=== PATIENT | female | born 1990 | race Caucasian/White ===

== ENCOUNTER → 2016-10-14 | Outpatient (CLI) | payer OTHER ==
[~2016-10-14] MED LIST: CEPH500C PO; PRENTAB26 PO
[2016-10-14 14:51] LABS: URINE APPEARANCE CLEAR (CLEAR); URINE COLOR DK YELLOW; URINE PH 6.5 (4.5-7.5); URINE SPECIFIC GRAVITY 1.025 (1.000-1.030)
[2016-10-14 14:52] LABS: URINE BILIRUBIN NEG (NEG); URINE NITRITE NEG (NEG); UROBILINOGEN NEG (NEG)
[2016-10-14 14:54] LABS: MANUAL MICROSCOPIC REQUIRED? NO; REVIEW REQ? NO
== END | disposition home or self-care (01) ==
LOC: C.LABSPEC 15:34
PROVIDERS: ATTEND Obstetrics & Gynecology
DX: Z34.90 Encounter for supervision of normal pregnancy, unspecified, unspecified trimester (principal)

== ENCOUNTER → 2016-12-23 | Outpatient (CLI) | payer OTHER ==
[2016-12-23 16:34] LABS: GTGD 50 Grams
== END | disposition home or self-care (01) ==
LOC: C.LAB1850 13:49
PROVIDERS: ATTEND Obstetrics & Gynecology
DX: Z34.91 Encounter for supervision of normal pregnancy, unspecified, first trimester (principal)

== ENCOUNTER → 2017-03-18 | Outpatient (CLI) | payer OTHER ==
[2017-03-18 15:41] LABS: HEMATOCRIT 34.2 % (37-47)
[2017-03-18 16:37] LABS: URINE APPEARANCE CLEAR (CLEAR); URINE BILIRUBIN NEG (NEG); URINE COLOR DK YELLOW; URINE NITRITE NEG (NEG); URINE SPECIFIC GRAVITY 1.035 (1.000-1.030); UROBILINOGEN NEG (NEG)
[2017-03-18 16:38] LABS: MANUAL MICROSCOPIC REQUIRED? NO; REVIEW REQ? NO
[2017-03-18 17:08] LABS: GTGD 50 Grams
== END | disposition home or self-care (01) ==
LOC: C.LAB1850 13:45
PROVIDERS: ATTEND Obstetrics & Gynecology
DX: Z34.83 Encounter for supervision of other normal pregnancy, third trimester (principal)

== ENCOUNTER 2017-03-24 20:56 | Emergency (ER) | payer OTHER ==
[~2017-03-24] VITALS: Ht 157.5 cm; Wt 70.3 kg
[2017-03-24 21:09] VITALS: TEMP 36.8; Ht 157.5 cm; Wt 70.3 kg
[2017-03-24] MEDS ORDERED: PRENTAB26 PO (21:20)
[2017-03-24] MEDS ORDERED: MUPIROCIN 2% OINT 22 GM TUBE EXT STA (21:40)
--- NOTE | 2017-03-24 21:45 | EMERGENCY ROOM VISIT NOTE ---
History First contact with patient: 21:32 Chief Complaint: BITE Stated Complaint: BIT BY SOMETHING,ALL RED AND SWOLLEN, History of Present Illness The patient is a 26 year old female who presents to the Emergency Room with complaints of an insect or spider bite to her right wrist. The patient states that she was gardening 2-3 days ago and was bit by something on her right wrist. She reports there has been increasing swelling and redness over the past 2 days. She is concerned because she is currently 29 weeks . She denies any pain but states that the area is itchy. She denies any difficulty moving the wrist. She denies any fevers. Review of Systems A complete 10 point review of systems was reviewed with the patient with pertinent positives and negatives as per history of present illness. All else were negative. Social History Smoking Status: Never Smoker Drug Use: none Marital Status: in relationship Housing Status: lives with family Occupation Status: employed Current/Historical Medications Scheduled Multivit/Min/Iron/Fol Ac/Pren ( Vitamin), 1 TAB PO DAILY Allergies Coded Allergies: No Known Allergies (Unverified , 09/03/16) Physical Exam Vital Signs Date Time Temp Pulse Resp B/P (MAP) Pulse Ox O2 Delivery O2 Flow Rate FiO2 03/24/17 21:09 36.8 90 18 116/77 97 Room Air Physical Exam VITALS: Vitals are noted on the nurse's note and reviewed by myself. Vital signs stable. GENERAL: This is a 26-year-old female, in no acute distress, nondiaphoretic, well-developed well-nourished. SKIN: There is an erythematous area over the right wrist with a central papule. The diameter is approximately 2 cm. There is no induration or fluctuance. MUSCULOSKELETAL: Full range of motion of the right wrist. NEURO: Patient was alert and oriented to person place and time. Medical Decision & Procedures Medical Decision Differential diagnosis includes cellulitis, abscess, septic joint, among others. The patient was evaluated as above. She has a small insect bite with minimal surrounding erythema which could represent a very small cellulitis. I feel this can be treated topically with Bactroban ointment, which will be safe in as it is not absorbed systemically. She was instructed to follow-up with primary care provider or return here for worsening symptoms. She verbalized understanding of my assessment and treatment plan and was discharged home in good condition. Impression Primary Impression: Insect bites Departure Information Dispostion Home / Self-Care Condition GOOD Referrals No Doctor, Assigned (PCP) Patient Instructions My [facility] Additional Instructions Apply the Bactroban ointment twice daily over the wound. This will help prevent infection. You may apply Benadryl cream for any itching. This is [id number]. Follow-up with your primary care provider as needed. Return to the emergency room with worsening redness, worsening swelling, fevers or any other new/concerning symptoms. Problem Qualifiers Primary Impression: Insect bites Encounter type: initial encounter Qualified Codes: W57.XXXA - Bitten or stung by nonvenomous insect and other nonvenomous arthropods, initial encounter
[2017-03-24 22:09] VITALS: BP 118/73; PULSE 86; O2SAT 97
== END 2017-03-24 22:05 | disposition home or self-care (01) ==
LOC: C.EDB 20:57 → C.EDD 22:05
DX: S60.861A Insect bite (nonvenomous) of right wrist, initial encounter (principal); W57.XXXA Bitten or stung by nonvenomous insect and other nonvenomous arthropods, initial encounter; Z33.1 Pregnant state, incidental

== ENCOUNTER 2017-03-27 20:54 | Emergency (ER) | payer OTHER ==
[~2017-03-27] VITALS: Ht 157.5 cm; Wt 70.7 kg
[~2017-03-27 20:54] MED LIST changes: -CEPH500C PO
[2017-03-27 20:57] VITALS: BP 122/83; PULSE 95; TEMP 36.7; O2SAT 98; Ht 157.5 cm; Wt 70.7 kg
[2017-03-27] MEDS ORDERED: CEPH500C PO (21:45)
--- NOTE | 2017-03-27 21:46 | EMERGENCY ROOM VISIT NOTE ---
ED Visit Note First contact with patient: 21:32 CHIEF COMPLAINT: insect bite with localized infection HISTORY OF PRESENT ILLNESS: This 26-year-old female patient presents to the emergency department 5 days after they sustained a insect bite to the right forearm. The patient was seen here 3 days ago, and prescribed Bactroban twice daily. Patient states she has been using this medication as prescribed. She reports since then, she has experienced increased pus, redness, swelling, drainage from the wound. She states the wound is slightly more tender than it had been earlier this week. Patient denies fever, chills, nausea, vomiting. Patient is 30 weeks and is concerned due to the risk of infection. The patient states she is uncertain what exactly bit her. The patient complains of no pain at the site of the injury. Pain is worse with movement. Tetanus status is up to date. REVIEW OF SYSTEMS: A 6 system review of systems was completed with positives and pertinent negatives listed in the HPI. ALLERGIES: None MEDICATIONS: vitamins PMH: None SOCIAL HISTORY: Patient lives locally with her family. She denies alcohol, tobacco, drug use. PHYSICAL EXAM: Vital Signs reviewed, see Nurse's notes, vital signs stable. GENERAL: 26-year-old female, awake, alert, well appearing, no acute distress. Non toxic in appearance. MUSCULOSKELETAL: Examination of the ate forearm reveals a small, swollen, erythematous area with scab over top. There is minimal swelling on inspection. Palpation of the right forearm reveals minimal tenderness over the wound. No significant crepitus or warmth noted. No joint space, tendon, or vascular involvement. Distal pulses intact. SKIN: Slight erythema surrounding the bite wound. This could indicate a slight cellulitis. No active drainage, pus, discharge at this time. NEURO: No sensory or motor deficits noted over all dermatomes and myotomes tested. EMERGENCY DEPARTMENT COURSE AND DECISION MAKING: I examined the patient. Possible cellulitis on examination due to increased redness and tenderness. Decided to provide patient with antibiotic prescription , however I recommended she wait 1-2 days as it appears the wound is healing well at this time prior to taking the medication. Patient should be sure to follow up with a primary care provider or her ceramics test engineer at her regularly scheduled appointment next week for recheck of the wound. Discharge instructions reviewed. Discharged in stable condition. DIAGNOSIS: Insect bite with mild localized cellulitis DIFFERENTIAL DIAGNOSIS: Cellulitis, abscess, spider bite, sepsis, and others. DISCHARGE INSTRUCTIONS: Cephalexin(Keflex) 500mg: Take one pill four times daily for 10 days for your skin infection. All antibiotics can cause diarrhea. If this occurs and you feel worse or it does not resolve in 1-2 days follow up with your doctor or return to the Emergency Department as this could be signs of serious underlying problems. Any medication can cause an allergic reaction, stop the pills immediately and return to the ER for rash, hives, breathing difficulties, or swelling. As we discussed, you may wait 1-2 days prior to starting Keflex. The wound is scabbed over, and I suspect it will continue to heal on its own. If you continued to notice worsening symptoms, or if symptoms do not improve over the next 1-2 days, you should begin taking the antibiotics as prescribed. Follow-up with your primary care provider or sales appointment coordinator next week for recheck of the wound. Return to the emergency department sooner if you experience fever, chills, dyspnea, headache, nausea, palpitations, vomiting, fatigue, increased redness, drainage or pus. Current/Historical Medications Scheduled Cephalexin Monohydrate (Keflex), 500 MG PO QID Multivit/Min/Iron/Fol Ac/Pren ( Vitamin), 1 TAB PO DAILY Allergies Coded Allergies: No Known Allergies (Unverified , 03/27/17) Vital Signs Date Time Temp Pulse Resp B/P (MAP) Pulse Ox O2 Delivery O2 Flow Rate FiO2 03/27/17 20:57 36.7 95 16 122/83 98 Room Air Departure Information Impression Primary Impression: Insect bites Additional Impression: Cellulitis Dispostion Home / Self-Care Condition GOOD Prescriptions Cephalexin Monohydrate (Keflex) 500 Mg Cap 500 MG PO QID for 10 Days, #40 CAP Prov: Ann West PA-C 03/27/17 Referrals No Doctor, Assigned (PCP) Patient Instructions ED Bite Insect, ED Infec Skin Cellulitis, [facility] Additional Instructions Cephalexin(Keflex) 500mg: Take one pill four times daily for 10 days for your skin infection. All antibiotics can cause diarrhea. If this occurs and you feel worse or it does not resolve in 1-2 days follow up with your doctor or return to the Emergency Department as this could be signs of serious underlying problems. Any medication can cause an allergic reaction, stop the pills immediately and return to the ER for rash, hives, breathing difficulties, or swelling. As we discussed, you may wait 1-2 days prior to starting Keflex. The wound is scabbed over, and I suspect it will continue to heal on its own. If you continued to notice worsening symptoms, or if symptoms do not improve over the next 1-2 days, you should begin taking the antibiotics as prescribed. Follow-up with your primary care provider or sales appointment coordinator next week for recheck of the wound. Return to the emergency department sooner if you experience fever, chills, dyspnea, headache, nausea, palpitations, vomiting, fatigue, increased redness, drainage or pus. Problem Qualifiers Primary Impression: Insect bites Encounter type: subsequent encounter Qualified Codes: W57.XXXD - Bitten or stung by nonvenomous insect and other nonvenomous arthropods, subsequent encounter Additional Impression: Cellulitis Site of cellulitis: extremity Site of cellulitis of extremity: upper extremity Laterality: right Qualified Codes: L03.113 - Cellulitis of right upper limb
== END 2017-03-27 22:16 | disposition home or self-care (01) ==
LOC: C.EDB 20:55 → C.EDD 22:16
DX: L03.113 Cellulitis of right upper limb (principal); S50.861D Insect bite (nonvenomous) of right forearm, subsequent encounter; W57.XXXD Bitten or stung by nonvenomous insect and other nonvenomous arthropods, subsequent encounter; Z33.1 Pregnant state, incidental

== ENCOUNTER → 2017-05-13 | Outpatient (CLI) | payer OTHER | END | disposition home or self-care (01) | LOC: C.LABSPEC 16:36 | PROVIDERS: ATTEND Obstetrics & Gynecology | DX: Z34.83 Encounter for supervision of other normal pregnancy, third trimester (principal) ==

== ENCOUNTER 2017-06-13 21:05 | Outpatient (CLI) | payer OTHER ==
[~2017-06-13] VITALS: Ht 157.5 cm; Wt 75.9 kg
[2017-06-13 21:23] VITALS: Ht 157.5 cm; Wt 75.9 kg
== END 2017-06-13 21:31 | disposition home or self-care (01) ==
LOC: C.LD 21:05 → C.OPB 21:05
PROVIDERS: ATTEND Obstetrics & Gynecology
DX: O26.893 Other specified pregnancy related conditions, third trimester (principal); N89.8 Other specified noninflammatory disorders of vagina; Z3A.00 Weeks of gestation of pregnancy not specified

== ENCOUNTER 2017-06-17 04:33 | Inpatient (IN) | payer OTHER ==
[~2017-06-17] VITALS: Ht 157.5 cm; Wt 75.9 kg
[2017-06-17] MEDS ORDERED: LACTATED RINGER'S 1000ML 1,000 ML IV SCH (04:41)
[2017-06-17] MEDS ORDERED: LACTATED RINGER'S 1000ML 1,000 ML IV PRN (04:41)
[2017-06-17] MEDS ORDERED: BUTORPHANOL TARTRATE 1 MG/ML VIAL IV ONE (05:00)
[2017-06-17] MEDS ORDERED: BUPIVACAINE 0.25% 30 ML VIAL ONE (05:17)
[2017-06-17] MEDS ORDERED: FENTANYL 2MCG/ML ROPIV 1.25MG/ML 100ML BAG EPI ONE (05:18)
[2017-06-17] MEDS ORDERED: EpHEDrine SULFATE INJ 50 MG/ML AMP ONE (05:18)
[2017-06-17] MEDS ORDERED: FENTANYL CITRATE INJ 50 MCG/1 ML 2 ML VIAL ONE (05:18)
[2017-06-17 05:27] LABS: HEMATOCRIT 36.4 % (37-47); MEAN CELL VOLUME 78.8 fL (80-100); MEAN CORPUSCULAR HEMOGLOBIN 26.2 pg (25-34); MEAN CORPUSCULAR HGB CONC 33.2 g/dl (32-36); MEAN PLATELET VOLUME 9.9 fL (7.4-10.4); PLATELET COUNT 244 K/uL (130-400); RED BLOOD COUNT 4.62 M/uL (4.2-5.4); WHITE BLOOD COUNT 11.55 K/uL (4.8-10.8)
[2017-06-17] MEDS ORDERED: NALOXONE HCL INJ 1 MG in SODIUM CHLORIDE 0.9% 1000ML 1,000 ML IV PRN ×4 (06:16)
[2017-06-17] MEDS ORDERED: LACTATED RINGER'S 1000ML 500 ML IV PRN (06:16)
[2017-06-17] MEDS ORDERED: NALBUPHINE HCL INJ 10 MG/ML AMP IV PRN (06:30)
[2017-06-17] MEDS ORDERED: EpHEDrine SULFATE INJ 50 MG/ML AMP IV PRN (06:30)
[2017-06-17] MEDS ORDERED: DiphenhydrAMINE HCL 50 MG/ML VIAL IV PRN (06:30)
[2017-06-17] MEDS ORDERED: ONDANSETRON INJ 2 MG/ML 2 ML VIAL IV PRN (06:30)
[2017-06-17] MEDS ORDERED: FENTANYL 2MCG/ML ROPIV 1.25MG/ML 100ML BAG EPI PRN (06:30)
[2017-06-17] MEDS ORDERED: NALOXONE HCL INJ 0.4 MG/1 ML VIAL/CARP IV PRN (06:30)
[2017-06-17] MEDS ORDERED: PROMETHAZINE HCL INJ 25 MG in SODIUM CHLORIDE 0.9% 50ML 50 ML IV PRN (06:30)
[2017-06-17 06:37] VITALS: Ht 157.5 cm; Wt 75.9 kg
[2017-06-17] MEDS ORDERED: OXYTOCIN 30 UNITS/500ML NSS IV ONE (07:32)
--- NOTE | 2017-06-17 09:57 | Vaginal Delivery Summary ---
Vaginal Delivery Summary The patient had dilated to complete and labored down. She began pushing at approximately +3 station. She pushed very effectively. With delivery of the cephalic via normal spontaneous vaginal delivery a shoulder dystocia was encountered. It was relieved with Carlito maneuvers and suprapubic pressure. This was along with gentle downward traction and effective maternal expulsive efforts. A body dystocia was also encountered. Ultimately the fetus was delivered and the cord was quickly doubly clamped and cut and the was taken to the radiant warmer for drying and attention. Apgars 8 and 9. Placenta was delivered spontaneously and intact, 3 vessel cord. Hemostasis achieved with dilute Pitocin and uterine massage. Cervix and sulci intact. Small vaginal laceration reapproximated with 3-0 Vicryl in a [id number]-kb-afsgs stitch for excellent hemostasis. EBL 300 cc's. Mother and baby stable in recovery. Circumstances of moderate shoulder dystocia and maneuvers used to relieve were reviewed with patient and partner.
[2017-06-17] MEDS ORDERED: ACETAMINOPHEN/CODEINE 300/30MG TAB PO PRN ×2 (10:00)
[2017-06-17] MEDS ORDERED: LANOLIN OINT EXT PRN ×2 (10:00)
[2017-06-17] MEDS ORDERED: SUPERCREAM 0.870 % 15GM JAR EXT PRN (10:00)
[2017-06-17] MEDS ORDERED: OXYTOCIN 30 UNITS/500ML NSS IV PRN (10:00)
[2017-06-17] MEDS ORDERED: HYDROCORTISONE ACETATE 25 MG SUPP PR PRN (10:00)
[2017-06-17] MEDS ORDERED: ACETAMINOPHEN 325 MG TAB PO PRN (10:00)
[2017-06-17] MEDS ORDERED: DIPHTHERIA/TETANUS/PERTUSSIS 0.5 ML SYR/VIAL IM. ONE (10:00)
[2017-06-17] MEDS ORDERED: BENZOCAINE 20% AER SPR 82.5 GM CAN EXT PRN (10:00)
[2017-06-17] MEDS ORDERED: OXYTOCIN INJ 20 UNITS in LACTATED RINGER'S 1000ML 1,000 ML IV SCH (11:30)
--- NOTE | 2017-06-17 12:03 | Anesthesia Procedure Note ---
Anesthesia Epidural Removal Nt Date & Time Jun 17, 2017 at 12:03 Vital Signs Pain Intensity: 0.0 Notes Mental Status: alert / awake / arousable, participated in evaluation Nausea / Vomiting: adequately controlled Pain: adequately controlled Airway Patency, RR, SpO2: stable & adequate BP & HR: stable & adequate Hydration State: stable & adequate Neuraxial Anesthesia: was administered, sensory block is resolving Anesthetic Complications: no major complications apparent, pt satisfied with anesthetic care Epidural: removed without complications, with tip intact
[2017-06-17 13:00] VITALS: BP 125/69; PULSE 86; TEMP 37.1
[2017-06-17] MEDS: IBUPROFEN 600 MG TAB PO PRN (13:11)
[2017-06-17 15:20] VITALS: BP 131/76; PULSE 77; TEMP 36.5; O2SAT 98
[2017-06-17 19:45] VITALS: BP 132/87; PULSE 92; TEMP 36.6
[2017-06-17] MEDS: DOCUSATE SODIUM 100 MG CAP PO SCH (19:58)
--- NOTE | 2017-06-17 22:03 | Discharge Instructions ---
Discharge Instructions Date of Service Jun 17, 2017. Admission Reason for Admission: Labor Check Discharge Discharge Diagnosis / Problem: DELIVERY VAGINAL Discharge Goals Goal(s): Routine recovery after delivery Medications Continue Dispensed Medications: supercream, dermaplast, tucks, lansinoh Activity Recommendations Activity Limitations: per Instructions/Follow-up section . Instructions / Follow-Up Instructions / Follow-Up ACTIVITY RECOMMENDATIONS: * Gradual return to full activity over the next 2-3 weeks. * No lifting - nothing heavier than baby over the next 2-3 weeks. * Do not engage in vigorous exercise, sexual activity or sports until cleared by your physician. * Do not drive or operate any motorized equipment until cleared by your physician. * You may shower/bathe daily. MEDICATIONS: For discomfort or pain, you may use Acetaminophen (Tylenol), Ibuprofen (Advil), or Naproxen (Aleve) following the package directions. For constipation you may use Colace following the package directions. BREAST CARE: If you are not breast feeding: * Wear a supportive bra 24 hours a day for one to two weeks. * Avoid stimulating your breasts and nipples as much as possible during the first few weeks after delivery. * When taking a shower, have the warm water hit your back, not breasts. * When your breasts feel full, apply ice packs. Usually three to four times a day helps ease the discomfort. * Take a mild pain medication (Tylenol / Motrin) when you are uncomfortable. If breast feeding: * Use breast milk to lubricate nipples. Lansinoh cream may be used for sore nipples. You do not need to remove cream prior to breast feeding. If using a different brand of cream, check the label for directions regarding removal of cream prior to nursing. * Wear a supportive bra. * If having problems with breasts or breast feeding, call a business system consultant or your health care provider. EPISIOTOMY CARE: After delivery, if you have an episiotomy (stitches), the following steps will ease discomfort and aid healing. * For the first 24 hours after delivery, place ice packs next to your episiotomy to help reduce swelling. * After the first 24 hour-period, sitz baths, either portable or in the tub, are suggested. A shower with a shower arm sprayed over the episiotomy may be comforting. * Isi care should be done after each voiding and bowel movement. Squirt warm water from a plastic bottle over the perineum (region of the body between the anus and urinary opening) and pat dry. * Use Dermoplast to ease discomfort. Shake container. [place]ondon directly over the episiotomy. Place a Tucks on a clean sanitary pad next to your episiotomy. SPECIAL CARE INSTRUCTIONS: When you are discharged from the hospital, it is important for you to follow the instructions listed below: * During the first week at home, you should be able to care for yourself and your baby. In addition, the usual light household activities are encouraged. * Limit your activities to the way you feel. Do not try to clean the house or move furniture. Be sensible. * If you actively engage in sports and have done so up until the time of your delivery, you may resume these activities as soon as you feel able. This may take up to one month or even longer. Use good judgment. * Continue to take your vitamins for at least six weeks after the of your baby. * Your diet need not be limited unless you were on a special diet before your delivery. Breast-feeding mothers need around 2500 calories per day and at least 64-80 ounces of fluid per day (8 to 10 glasses). * You should eat foods from the four major food groups. Crash diets or fad diets are to be avoided. Eating lean meats, fresh fruits and vegetables, low-fat dairy products, high fiber foods and a regular exercise program, will help you get back to your pre- weight without putting your health at risk. * Constipation is sometimes a problem after delivery. Take a mild laxative as needed. If breast feeding, Milk of Magnesia is acceptable to use. You may use a suppository or Fleets enema if no episiotomy. * A daily shower or tub bath is suggested. Be sure to thoroughly and gently dry the perineum. * A bloody vaginal discharge will usually continue until around four weeks post . A small amount of bleeding may continue for as long as six weeks. Vaginal discharge changes from the bright red bleeding after delivery to pink then brownish and finally yellowish-pink before becoming white and disappearing. * Bleeding may increase with activity. Your first period may come in 4-8 weeks. If you are breast feeding, your period may be delayed even longer. * [place] (sex) can begin whenever both you and your partner feel comfortable and do not have any form of genital infection. It is recommended that you wait at least six weeks for internal and external healing to occur. If you have questions, please talk to your health care practitioner. A condom should be used to prevent infection and . * Foreplay, gentle intercourse and lubrication is very important the first several times to prevent pain. A water-based lubricant such as K-Y jelly or Astroglide may be used. * If you have RH negative blood and your baby is RH positive, you will receive RHOGAM by injection prior to discharge. The nurse will give you a card to keep with you that has the date and place that you received RHOGAM after delivery. * During your care, you had a Rubella screen done to check for the presence of rubella antibodies in your blood. If your test was negative, you will receive a Rubella vaccine prior to discharge. This vaccine may cause a fever, soreness at the injection site and flu-like symptoms. If these symptoms persist, notify your health care practitioner. is not advised for one month after a Rubella vaccine. * Verbalizes understanding of car seat law as reviewed with patient nursing. * Car Seat hand-out given and reviewed with patient by nursing. * Shaken baby information reviewed with patient by nursing. Call you doctor if: * Heavy bleeding (saturating several pads an hour) or passing clots the size of your fist. * A fever >101 degrees F (38.3 degrees C) on two occasions four hours apart and /or chills. * Unusual pain in the pelvic or vaginal areas. * "Baby Blues" lasting longer than two weeks. If you have any questions or concerns, call your health care practitioner at . FOLLOW UP VISIT: * Please call the office at to schedule a 6 week examination. It is important you keep this appointment. It is important for you to make arrangements for either yearly or twice yearly check-ups thereafter. Current Hospital Diet Patient's current hospital diet: Regular OB Diet Discharge Diet Recommended Diet: Regular Diet Pending Studies Studies pending at discharge: no Medical Emergencies . Who to Call and When: Medical Emergencies: If at any time you feel your situation is an emergency, please call 911 immediately. . Non-Emergent Contact Non-Emergency issues call your: Primary Care Provider . . "Provider Documentation" section prepared by Augusta Mehta. . VTE Core Measure Inpt VTE Proph given/why not?: Treatment not indicated
[2017-06-17 23:30] VITALS: BP 110/72; PULSE 80; TEMP 36.6
[2017-06-18 04:15] VITALS: BP 131/95; PULSE 94; TEMP 36.7
--- NOTE | 2017-06-18 06:47 | Progress Note ---
Subjective Jun 18, 2017. Subjective conversation w/ patient, physical exam, chart review, lab review Ambulation: ambulating normally Voiding: no voiding problems Passing Gas: Yes Diet Tolerance: Regular Diet Lochia: Moderate Feeding Type: Breast Feeding Pain: controlled Review of Systems Respiratory: No shortness of breath Cardiac: No chest pain Abdomen: No nausea, No vomiting Female : No dysuria Objective Vital Signs Date Time Temp Pulse Resp B/P (MAP) Pulse Ox O2 Delivery O2 Flow Rate FiO2 06/18/17 04:15 36.7 94 18 131/95 (107) Room Air 06/17/17 23:30 Room Air 06/17/17 23:30 36.6 80 18 110/72 (85) Room Air 06/17/17 19:45 36.6 92 18 132/87 (102) Room Air 06/17/17 15:20 36.5 77 18 131/76 (94) 98 Room Air 06/17/17 15:20 98 Room Air 06/17/17 13:00 Room Air 06/17/17 13:00 37.1 86 20 125/69 Physical Exam General Appearance: WELL-APPEARING, WD/WN, NO APPARENT DISTRESS Respiratory/Chest: lungs clear, normal breath sounds, no respiratory distress Cardiovascular: regular rate, rhythm, no gallop, no JVD Abdomen: normal bowel sounds, soft Fundus: Firm, Tender (appropriately tender), Relation to Umbilicus (1 below U) Extremities: no calf tenderness Assessment and Plan Post- Day#: 1 Continue Routine Care: - Vital Signs reviewed and WNL. - Blood Type: A+, GBS-, Rubella Immune. - Pt is doing well clinically. - Encourage Ambulation, Monitor and Control pain with Motrin PRN, Resume regular diet, Monitor Lochia - Encourage Breast Feeding. - Pt counselled on discharge instructions. Medically stable. HERMILO MEHTA PGY1 FM RESIDENT Resident Physician Supervision Note: I was present with Dr. Mehta during the history and exam. I discussed the case with the resident and agree with the findings and plan as documented in the note. Any exceptions or clarifications are listed here: She is doing well. wants to go home. reviewed d/c instructions and f/u 6wks pp. She wants to consider tubal, they are aware of male vasectomy. Will message surgery nurse to call pt to pick date after 6wks pp visit. Documented By: Brooklyn Garland Resident Tracking Resident Involvement: Resident Care Provided Care Provided: OB Delivery
[2017-06-18 07:11] VITALS: BP 119/80; PULSE 74; TEMP 36.5; O2SAT 99
[2017-06-18] MEDS: DOCUSATE SODIUM 100 MG CAP PO SCH (08:12)
[2017-06-18] MEDS: IBUPROFEN 600 MG TAB PO PRN (08:13)
[2017-06-18 14:10] VITALS: BP_DIAS 80; PULSE 74; TEMP 36.5
== END 2017-06-18 14:10 | disposition home or self-care (01) | DRG 775 ==
LOC: C.LD 04:33 → C.OBG 12:58
PROVIDERS: ADMIT Obstetrics & Gynecology; ATTEND Obstetrics & Gynecology
PROC: 0UQGXZZ Repair Vagina, External Approach (ICD-10-PCS; principal; 2017-06-17)
PROC: 10E0XZZ Delivery of Products of Conception, External Approach (ICD-10-PCS; principal; 2017-06-17)
DX: O48.0 Post-term pregnancy (principal); Z37.0 Single live birth; O66.0 Obstructed labor due to shoulder dystocia; O66.8 Other specified obstructed labor; O70.0 First degree perineal laceration during delivery; O99.214 Obesity complicating childbirth; E66.9 Obesity, unspecified; O99.02 Anemia complicating childbirth; D64.9 Anemia, unspecified; Z3A.41 41 weeks gestation of pregnancy; Z68.30 Body mass index [BMI] 30.0-30.9, adult

== ENCOUNTER → 2018-02-16 | Day surgery (SDC) | payer OTHER ==
[2018-01-08 07:29] VITALS: Ht 157.5 cm; Wt 57.7 kg
[~2018-02-16] VITALS: Ht 157.5 cm; Wt 57.7 kg
[~2018-02-16] MED LIST changes: +ATROPINE SULFATE 0.1 MG/ML 5ML SYR IV PRN; +DEXAMETHASONE SOD INJ 4 MG/ML VIAL ONE; +EpHEDrine SULFATE INJ 50 MG/ML AMP IV PRN; +FENTANYL CITRATE INJ 50 MCG/1 ML 2 ML VIAL IV PRN; +FENTANYL CITRATE INJ 50 MCG/1 ML 2 ML VIAL ONE; +GLYCOPYRROLATE INJ 0.2 MG/ML VIAL ONE; +IBUPROFEN 600 MG TAB PO PRN; +KETOROLAC TROMETHAMINE 30 MG/ML VIAL IV. PRN; +LACTATED RINGER'S 1000ML 1,000 ML IV SCH; +LIDOCAINE HCL 2% 2 ML VIAL (20MG/ML) ONE; +MIDAZOLAM HCL 1 MG/ML 2ML VIAL ONE; +MULT-506 PO; +NEOSTIGMINE METHYLSULFATE 5 MG/5 ML SYR ONE; +ONDANSETRON INJ 2 MG/ML 2 ML VIAL IV PRN; +ONDANSETRON INJ 2 MG/ML 2 ML VIAL ONE; +OXYCODONE/ACETAMINOPHEN 5-325 TAB PO PRN; -PRENTAB26 PO; +PROPOFOL IV EMULSION 10 MG/ML 20 ML VIAL ONE; +ROCURONIUM BROMIDE 10 MG/ML 5 ML VIAL ONE; +SODIUM CHLORIDE 0.9% 1000ML 1,000 ML IV SCH
--- NOTE | 2018-02-16 06:51 | History & Physical Bridge - SC ---
H&P Re-Evaluation Bridge Note: I have examined the patient, reviewed the History & Physical and in the interval since the performance of the History & Physical I have noted the following changes of clinical significance: No changes noted
--- NOTE | 2018-02-16 07:32 | [facility] Post Operative Brief Note ---
Immediate Operative Summary Operative Date February 16, 2018. Pre-Operative Diagnosis Desires Sterilization Post-Operative Diagnosis Same Procedure(s) Performed Laparoscopic Bilateral Tubal Sterilization Surgeon Dr. Garland Disintegrator Operator Surgeon(s) None Estimated Blood Loss None Findings See Below (normal uterus, tubes and ovaries bilaterally, normal liver edge and gallbladder. ) see below Fluids (cc crystalloids) 450 Specimens None Drains None Anesthesia Type General Complication(s) none Disposition Accompanied Pt To Recover: no Disposition: Recovery Room / PACU
--- NOTE | 2018-02-16 07:34 | Discharge Instructions ---
Discharge Instructions Date of Service February 16, 2018. Admission Reason for Admission: Request For Sterilization Discharge Discharge Diagnosis / Problem: after surgery Discharge Goals Goal(s): Routine recovery after surgery Activity Recommendations Activity Limitations: as noted below . Instructions / Follow-Up Instructions / Follow-Up ACTIVITY RECOMMENDATIONS: * Rest the first 1-2 days. You should be back to your normal activity levels by day 3. * No heavy lifting for 2 weeks. * No intercourse, tampons or douching for 1-2 weeks. * You may shower the next day. * Do not drive anytime that you are taking narcotic pain medicines. RETURN TO SCHOOL/WORK: * May return to school or work after 1-2 days. DIET: Nausea may occur in the immediate post-operative period. If so, take clear liquids such as tea, bouillon, apple juice until all nausea has subsided, then resume usual diet. MEDICATIONS: Resume previous medications unless instructed otherwise by your surgeon. Ibuprofen 200mg 2-3 tablets every 4-6 hours as needed -- OR -- Aleve 2 tablets every 8-12 hours as needed for post-operative discomfort Medications are over the counter. Tylenol may be used if above medications are contraindicated or not preferred. Medication should be taken with food or milk. Do not take on an empty stomach. SPECIAL CARE INSTRUCTIONS: * Check temperature twice daily for one week. report any elevation over 101 degrees. * You may experience some vagina spotting and/or bleeding. This is normal for 1 -2 weeks and should not be heavier than a normal period. If it is unusual in amount, call your physician. * Post-operative discomfort may consist of a sore throat, a "bloated" feeling and pain in the shoulders. these are normal symptoms, which usually only last for 2-3 days. * Remove band-aids tomorrow and shower. There is no need to replace band-aids unless there is drainage or discomfort. FOLLOW UP VISIT: Call your doctor's office for a post-operative if needed. Current Hospital Diet Patient's current hospital diet: Discharge Diet Recommended Diet: Regular Diet Procedures Procedures Performed: Laparoscopic Bilateral Tubal Sterilization Pending Studies Studies pending at discharge: no Medical Emergencies . Who to Call and When: Medical Emergencies: If at any time you feel your situation is an emergency, please call 911 immediately. . Non-Emergent Contact Non-Emergency issues call your: Marine Meteorologist . . "Provider Documentation" section prepared by Brooklyn Garland. .
--- NOTE | 2018-02-16 08:02 | OPERATIVE REPORT ---
DATE OF OPERATION: 02/16/2018 PREOPERATIVE DIAGNOSES: Desires sterilization. POSTOPERATIVE DIAGNOSIS: Desires sterilization. PROCEDURE: Bilateral laparoscopic tubal sterilization. SURGEON: Brooklyn Garland MD OCCUPATIONAL MEDICINE SPECIALIST: None. IV FLUIDS: 450 mL. ESTIMATED BLOOD LOSS: 0 mL. ANESTHESIA: General. FINDINGS: Normal uterus, tubes, and ovaries bilaterally. Normal liver edge and gallbladder. INDICATIONS: This is a 27-year-old 2, para 2, who has completed her childbearing and is requesting permanent sterilization. She is aware of all control options including male vasectomy and desires to proceed. DESCRIPTION OF PROCEDURE: The patient taken to the operating room and identified. After adequate general anesthesia was obtained, she was placed in the dorsal lithotomy position and prepped and draped in the usual sterile fashion. The bladder was drained under sterile conditions for clear yellow urine. The weighted speculum was placed to visualize the cervix which was grasped on its anterior lip with an Allis clamp and it was connected to the acorn uterine manipulator that was gently placed into the cervical os. The retractor was removed. Attention was then turned to the patient's abdomen where an infraumbilical skin incision was made with a scalpel. A Veress needle was placed intraperitoneally with an opening pressure of 4 mmHg. A CO2 pneumoperitoneum was created. The 10 mm optical trocar was placed intraperitoneally under direct visualization using the laparoscope connected to its light source and camera. The patient was placed in steep Trendelenburg. The operative laparoscope was then utilized to visualize the right fallopian tube to its fimbriated end. It was coagulated in approximately a 3-cm segment 2-3 cm from the right cornu using a Kleppinger forceps with an impedance monitor. The left fallopian tube was identified in a similar fashion and coagulated in a similar fashion. At this point the procedure was terminated and the laparoscope was removed. The patient was returned to the flat positioning and the CO2 was gas allowed to escape from the abdomen. The trocar was then removed. The fascia was reapproximated with a single interrupted suture of 0 Vicryl. The skin was then closed in a subcuticular fashion using 4-0 Vicryl. A Band-Aid was applied. The vaginal instruments were removed. The patient was returned to supine position, awoken from anesthesia, and transferred to the recovery room in stable condition. All sponge, lap, and needle counts were correct x2. I attest to the content of the Intraoperative Record and any orders documented therein. Any exceptions are noted below. MTDD
[2018-02-16 08:25] VITALS: TEMP 36.4
--- NOTE | 2018-02-16 08:30 | Anesthesia Progress Nt - [facility] ---
Anesthesia Post Op Note Date & Time February 16, 2018 at 08:30 Vital Signs Pain Intensity: 3 Vital Signs Past 12 Hours Date Time Temp Pulse Resp B/P (MAP) Pulse Ox O2 Delivery O2 Flow Rate FiO2 02/16/18 08:18 36.4 02/16/18 08:16 53 9 127/84 (94) 97 02/16/18 08:16 55 9 02/16/18 08:11 76 10 02/16/18 08:11 76 10 134/99 (110) 100 02/16/18 08:06 Room Air 02/16/18 08:06 61 8 02/16/18 08:06 61 8 100 02/16/18 08:05 123/87 (99) 02/16/18 08:01 73 12 123/87 (96) 100 02/16/18 08:01 74 12 02/16/18 07:56 78 8 02/16/18 07:56 78 8 100 02/16/18 07:55 129/90 (98) 02/16/18 07:51 78 15 02/16/18 07:51 78 15 100 02/16/18 07:50 120/86 (96) 02/16/18 07:49 130/92 (98) 02/16/18 07:46 93 10 100 02/16/18 07:46 36.5 87 12 130/92 100 Diffusion Mask 5 02/16/18 07:46 93 10 02/16/18 07:45 148/109 (117) 02/16/18 06:33 36.6 77 16 109/75 (86) 97 Room Air Notes Mental Status: alert / awake / arousable, participated in evaluation Pt Amnestic to Procedure: Yes Nausea / Vomiting: adequately controlled Pain: adequately controlled Airway Patency, RR, SpO2: stable & adequate BP & HR: stable & adequate Hydration State: stable & adequate Anesthetic Complications: no major complications apparent
[2018-02-16 08:56] VITALS: BP 126/88; PULSE 69; O2SAT 97
== END | disposition home or self-care (01) ==
LOC: X.SURG 06:10
PROVIDERS: ATTEND Obstetrics & Gynecology
DX: Z30.2 Encounter for sterilization (principal); F41.9 Anxiety disorder, unspecified; Z82.49 Family history of ischemic heart disease and other diseases of the circulatory system; Z81.8 Family history of other mental and behavioral disorders

== ENCOUNTER 2020-01-14 23:49 | Inpatient (IN) ==
[2020-01-15] MEDS ORDERED: MoRPHine SULFATE 4 MG/ML 1 ML CARP\\VIAL IV PRN (00:07)
[2020-01-15] MEDS ORDERED: ONDANSETRON INJ 2 MG/ML 2 ML VIAL IV STA (00:07)
[2020-01-15] MEDS ORDERED: SODIUM CHLORIDE 0.9% 1000ML 1,000 ML IV SCH (00:15)
[2020-01-15 00:29] LABS: Basophils # (auto) 0.02 K/uL (0-0.2); Basophils % (auto) 0.1 %; Eosinophils # (auto) 0.06 K/uL (0-0.5); Eosinophils % (auto) 0.4 %; Hematocrit (blood only) 44.7 % (37-47); Hemoglobin 15.9 g/dL (12.0-16.0); Immature Granulocytes # (auto) 0.02 K/uL (0.00-0.02); Immature Granulocytes % (auto) 0.1 %; Lymphocytes % (auto) 13.1 %; Mean Corpuscular Hemoglobin 31.9 pg (25-34); Mean Corpuscular Hgb Conc 35.6 g/dL (32-36); Mean Corpuscular Volume 89.6 fL (80-100); Mean Platelet Volume 9.4 fL (7.4-10.4); Monocytes # (auto) 0.95 K/uL (0.11-0.59); Monocytes % (auto) 6.5 %; Neutrophils # (auto) 11.56 K/uL (1.4-6.5); Neutrophils % (auto) 79.8 %; Platelet Count 289 K/uL (130-400); RDW Coefficient of Variation 12.3 % (11.5-14.5); RDW Standard Deviation 39.9 fL (36.4-46.3); Red Blood Count 4.99 M/uL (4.2-5.4); White Blood Count 14.51 K/uL (4.8-10.8)
[2020-01-15 00:47] LABS: Albumin Level 4.3 gm/dl (3.4-5.0); BUN Creatinine Ratio 13.6 (10-20); Calcium 9.4 mg/dl (8.5-10.1); Creatinine Clr Calc Pharmacy 75.6 ml/min; Est GFR (African American) 99.4; Est GFR (Non-African American) 85.8; Potassium 3.4 mmol/L (3.5-5.1)
[2020-01-15 00:49] LABS: Albumin Globulin Ratio 1.2 (0.9-2); Bilirubin,Total 0.9 mg/dl (0.2-1); Globulin 3.7 gm/dl (2.5-4.0)
[2020-01-15 00:56] LABS: Appearance Urine Turbid (Clear); Bacteria Urine Automated 1+ (Negative); Bilirubin Urine Negative (Negative); Blood Urine Trace (Negative); Cast Urine Automated 0 /lpf (0-5); Color Urine Yellow; Epithelial Cell Urine Auto >30 /lpf (0-5); Glucose Urine UA Negative (Negative); Ketones Urine 1+ (Negative); Leukocyte Esterase Urine 2+ (Negative); Nitrite Urine Negative (Negative); Protein Urine Negative (Negative); Specific Gravity Urine 1.021 (1.000-1.030); Urobilinogen Urine Negative (Negative)
[2020-01-15] MEDS ORDERED: CIPROFLOXACIN / D5W 400 MG/200 ML BAG IV STA (01:19)
[2020-01-15] MEDS ORDERED: metroNIDAZOLE 500 MG/100 ML BAG IV STA (01:19)
--- NOTE | 2020-01-15 02:33 | History & Physical Report ---
Date of Service January 15, 2020 Assessment & Plan (1) Partial small bowel obstruction: Partial small bowel obstruction versus ileus/severe abdominal pain/neutrophilic leukocytosis- N.p.o. except ice chips Admit to medical surgical floor. NSS + KCl 20 mEq at 150 mils per hour. Zofran 4 mg IV every 6 hours as needed. Famotidine 20 mg IV every 12 hours. Toradol 15 mg IV every 6 hours PRN moderate pain. Morphine sulfate 2 mg IV every 4 hours as needed severe pain. Continue Cipro 400 mg IV every 12 hours and Flagyl 500 mg IV every 8 hours begun in the ED. Present on Admission?: Yes (2) Abdominal pain: See above Present on Admission?: Yes (3) UTI (urinary tract infection): Follow urine culture and sensitivity Present on Admission?: Yes (4) Neutrophilic leukocytosis: See above Present on Admission?: Yes (5) Hypokalemia: Placed on NSS + KCl 20 mEq at 150 mils per hour Present on Admission?: Yes Admission and Anticipated Discharge Date Admission Date: 01/15/2020 Anticipated date of discharge: 01/16/20 History of Present Illness Chief Complaint: The patient presents to the emergency department with acute onset of sharp mid abdominal pain earlier in evening prior to arrival. Primary Care Provider: Michelle Smith DO The patient is a 29-year-old female with past medical history primarily significant for vaginal bleeding, who presents to the emergency department with acute onset of severe sharp mid abdominal discomfort that dropped her to her knees. She denies any recent travel or sick exposures. She denies any change in dietary habits to both liquids and solids. She reports no bowel movement today, and had a small bowel movement yesterday. She has not had any previous occurrences of the type of symptoms, and denies any significant abdominal surgeries. Allergies Allergy/AdvReac Type Severity Reaction Status Date / Time No Known Allergies Allergy Unverified 01/15/20 00:12 Home Medications Home Medications Medication Instructions Recorded Confirmed Type No Known Home Medications 01/15/20 01/15/20 History Past Med/Surg History Social History Preferred Language: [place] Communication Ability: Effective marital status: Current Living Situation: Family current occupational status: employed Feels Safe at Home: Yes Smoking Status: Never smoker Hx Alcohol Use: Yes Alcohol Intake Frequency: Rarely Hx Substance Use: No Childhood Exposure to Second-Hand Smoke: No Dental Care, Regularly: No Physical Activity Frequency: 5-6 Times per Week Review of Systems Review of Systems: The patient denies chest pain, palpitations, shortness of breath, dyspnea on exertion, cough, lower extremity swelling, sore throat, fevers, chills, sweats, vomiting, diarrhea , constipation, blood in urine or stool, dysuria, urinary frequency or urgency, lightheadedness, dizziness, headache, memory loss, loss of consciousness, rash, abnormal bruising or bleeding, imbalance, focal or generalized weakness, numbness or tingling in arms or legs, generalized arthralgias or myalgias, back or neck pain, or night sweats. The review of systems is otherwise negative other than for that already noted above, and at least 10 systems have been reviewed. Physical Exam Physical Exam: The patient is awake, alert and oriented 3, well developed and well nourished, normocephalic and atraumatic, lying in bed and in no acute distress. HEENT--PERRL, EOMI, mucous membranes and oropharynx dry. Neck--supple. No JVD. No bruits. Thyroid normal, trachea midline, no adenopathy. Heart--normal S1 and S2. No murmurs, rubs or gallops. Lungs--clear bilaterally, no respiratory distress, no accessory muscle use. Abdomen--normal bowel sounds and soft. Nontender. Nondistended, post administration of morphine. Extremities--no cyanosis or clubbing. No edema. Dermatologic--normal skin turgor, normal color, no abnormal lymph nodes, no rash. Neurologic--cranial nerves II through XII grossly intact. Rheumatologic--normal range of motion. Psychiatric--normal affect. Results & Data Results & Data ([facility]) Vital Signs (Past 12 Hours) Vital Signs Temp Pulse Pulse Resp BP BP Pulse Ox 01/15/20 01:34 84 16 135/87 96 01/14/20 23:51 98.4 F 93 H 18 145/86 H 97 Laboratory Results Laboratory Results WBC 14.51 K/uL (4.8-10.8) H 01/15/20 00:13 RBC 4.99 M/uL (4.2-5.4) 01/15/20 00:13 Hgb 15.9 g/dL (12.0-16.0) 01/15/20 00:13 Hct 44.7 % (37-47) 01/15/20 00:13 MCV 89.6 fL (80-100) 01/15/20 00:13 MCH 31.9 pg (25-34) 01/15/20 00:13 MCHC 35.6 g/dL (32-36) 01/15/20 00:13 RDW Std Deviation 39.9 fL (36.4-46.3) 01/15/20 00:13 RDW Coeff of Yris 12.3 % (11.5-14.5) 01/15/20 00:13 Plt Count 289 K/uL (130-400) 01/15/20 00:13 MPV 9.4 fL (7.4-10.4) 01/15/20 00:13 Immature Gran % (Auto) 0.1 % 01/15/20 00:13 Neut % (Auto) 79.8 % 01/15/20 00:13 Lymph % (Auto) 13.1 % 01/15/20 00:13 [place] % (Auto) 6.5 % 01/15/20 00:13 Eos % (Auto) 0.4 % 01/15/20 00:13 Baso % (Auto) 0.1 % 01/15/20 00:13 Immature Gran # (Auto) 0.02 K/uL (0.00-0.02) 01/15/20 00:13 Neut # (Auto) 11.56 K/uL (1.4-6.5) H 01/15/20 00:13 Lymph # (Auto) 1.90 K/uL (1.2-3.4) 01/15/20 00:13 [place]ro # (Auto) 0.95 K/uL (0.11-0.59) H 01/15/20 00:13 Eos # (Auto) 0.06 K/uL (0-0.5) 01/15/20 00:13 Baso # (Auto) 0.02 K/uL (0-0.2) 01/15/20 00:13 Sodium 137 mmol/L (136-145) 01/15/20 00:13 Potassium 3.4 mmol/L (3.5-5.1) L 01/15/20 00:13 Chloride 103 mmol/L (98-107) 01/15/20 00:13 Carbon Dioxide 29 mmol/L (21-32) 01/15/20 00:13 Anion Gap 5.0 (3-11) 01/15/20 00:13 BUN 12 mg/dl (7-18) 01/15/20 00:13 Creatinine 0.90 mg/dl (0.6-1.2) 01/15/20 00:13 Est Cr Clr Drug Dosing 75.6 ml/min 01/15/20 00:13 Est GFR ( Amer) 99.4 01/15/20 00:13 Est GFR (Non-Af Amer) 85.8 01/15/20 00:13 BUN/Creatinine Ratio 13.6 (10-20) 01/15/20 00:13 Glucose 93 mg/dl (70-99) 01/15/20 00:13 Calcium 9.4 mg/dl (8.5-10.1) 01/15/20 00:13 Total Bilirubin 0.9 mg/dl (0.2-1) 01/15/20 00:13 AST 19 U/L (15-37) 01/15/20 00:13 ALT 23 U/L (12-78) 01/15/20 00:13 Alkaline Phosphatase 62 U/L (45-117) 01/15/20 00:13 Total Protein 8.0 gm/dl (6.4-8.2) 01/15/20 00:13 Albumin 4.3 gm/dl (3.4-5.0) 01/15/20 00:13 Globulin 3.7 gm/dl (2.5-4.0) 01/15/20 00:13 Albumin/Globulin Ratio 1.2 (0.9-2) 01/15/20 00:13 Lipase 51 U/L (73-393) L 01/15/20 00:13 Urine Color Yellow 01/15/20 00:16 Urine Appearance Turbid (Clear) A 01/15/20 00:16 Urine pH 8.0 (4.5-7.5) H 01/15/20 00:16 Ur Specific [place] 1.021 (1.000-1.030) 01/15/20 00:16 Urine Protein Negative (Negative) 01/15/20 00:16 Urine Glucose (UA) Negative (Negative) 01/15/20 00:16 Urine Ketones 1+ (Negative) H 01/15/20 00:16 Urine Blood Trace (Negative) H 01/15/20 00:16 Urine Nitrite Negative (Negative) 01/15/20 00:16 Urine Bilirubin Negative (Negative) 01/15/20 00:16 Urine Urobilinogen Negative (Negative) 01/15/20 00:16 Ur Leukocyte Esterase 2+ (Negative) H 01/15/20 00:16 Urine WBC (Auto) 5-10 /hpf (0-5) H 01/15/20 00:16 Urine RBC (Auto) 5-10 /hpf (0-4) H 01/15/20 00:16 U Hyaline Cast (Auto) 0 /lpf (0-5) 01/15/20 00:16 U Epithel Cells (Auto) >30 /lpf (0-5) H 01/15/20 00:16 Urine Bacteria (Auto) 1+ (Negative) H 01/15/20 00:16 POC Ur Test NEG (NEG) 01/15/20 00:16 Diagnostic Findings [facility] Patient: ELENO ROBERTO (Female) : 88 Status: ER Date: 01/15/20 00:42 Room #: History: mid abd pain appen pres tubal Slices: 545 Priors: Tech: Kai Huitron @ [phone] Exams: CT ABDOMEN & PELVIS Without Contrast Accession Numbers: [id number] Preliminary Findings Only See Final Report For Complete Findings CT ABDOMEN & PELVIS Without Contrast: Multiple loops of dilated small bowel, mainly jejunum, in the mid abdomen with mild wall thickening and adjacent mesenteric edema. A clear transition point is not definitively seen, however, there are decompressed loops of ileum. Findings could represent a partial small bowel obstruction or ileus from infectious enteritis. No free air or free fluid. No abscess. Normal appendix. Radiologist: Page Laughlin MD Study ready at 00:44 and initial results transmitted at 00:52 *This report constitutes a preliminary interpretation only. Non-acute findings felt to be unrelated to the clinical presentation may not be discussed in this report. The study will be interpreted and a final report will be generated by the local Radiologist the following shift. To reach the hospital radiology department call [phone]. If a discrepancy is found between the preliminary and final interpretations of this study, please notify us via our Client Portal at [email or web address] under QA Exams.You can also fax this report with a description of the discrepancy, or include the final report, to our daytime fax number [phone].If faxing, please indicate the severity of discrepancy using one of the following categories: [ ] 1 - Agree/Informational [ ] 2 - Unlikely to Affect Management [ ] 3 - Possible Eventual Change of Management [ ] 4 - Probable Immediate Change of Management For all other patient related information, please fax us at [phone]. [id number] Code Status & VTE Plan Code Status Full code VTE Prophylaxis Plan VTE Prophylaxis will be ordered: Yes PG Care Time/CCT Total # of Minutes Spent Total Time Spent with Patient: Total time spent is greater than 50% in coordination of care (as documented) at patient's floor/unit and/or counseling patient: Coding Level of Care Code 01675 Initial Inpt Care Lvl 2 Diagnoses Partial small bowel obstruction K56.600 Abdominal pain R10.33 Abdominal location: periumbilical UTI (urinary tract infection) N30.00 Hematuria presence: without hematuria Urinary tract infection type: acute cystitis Neutrophilic leukocytosis D72.9 Hypokalemia E87.6 (1) Abdominal pain Abdominal location: periumbilical Qualified Code(s): R10.33 - Periumbilical pain (2) UTI (urinary tract infection) Hematuria presence: without hematuria Urinary tract infection type: acute cystitis Qualified Code(s): N30.00 - Acute cystitis without hematuria
[2020-01-15] MEDS ORDERED: MoRPHine SULFATE 2 MG/ML CARP IV PRN (02:54)
[2020-01-15] MEDS ORDERED: ONDANSETRON INJ 2 MG/ML 2 ML VIAL IV PRN (02:54)
[2020-01-15] MEDS ORDERED: KETOROLAC TROMETHAMINE 15 MG/ML VIAL IV PRN (02:54)
[2020-01-15] MEDS: NSS + 20MEQ KCL 20 MEQ/1,000 ML BAG IV SCH ×4 (03:33→23:52)
--- NOTE | 2020-01-15 05:31 | Emergency Department Note ---
History of Present Illness General Chief complaint: Abdominal Pain Stated complaint: ABD PAINS, NAUSEA Time Seen by Provider: 01/14/20 23:57 History of Present Illness Maximum Pain Intensity: 5 This is a 29-year-old female presenting to the emergency department for evaluation of mid abdominal pain worsening over the past 2 to 3 hours. The patient is nauseated without vomiting. She denies chance of . She has not had fevers or chills. The patient does have some history of constipation, and did take a stool softener today without significant improvement of her symptoms. She has past surgical history of laparoscopic hysterectomy, but otherwise is without significant medical disease. She has not had any recent travel history. No chest pain, chest tightness, shortness of breath, or pelvic pain. She rates her current discomfort an 8/10. Home Medications Home Medications Medication Instructions Recorded Confirmed Type No Known Home Medications 01/15/20 01/15/20 History Allergies Allergy/AdvReac Type Severity Reaction Status Date / Time No Known Allergies Allergy Unverified 01/15/20 00:12 Past Med/Surg History Medical History Gestational hypertension without significant proteinuria in third trimester Surgical History No pertinent past surgical history Social History Preferred Language: Pashto Communication Ability: Effective Film Booker Required: No Beliefs That Will Affect Care: None marital status: Current Living Situation: Spouse current occupational status: employed Feels Safe at Home: Yes Smoking Status: Never smoker Second Hand Exposure: Yes (as a child) ; Hx Alcohol Use: Yes Alcohol type: wine and hard liquor Alcohol Intake Frequency: Rarely Hx Substance Use: No Childhood Exposure to Second-Hand Smoke: No Dental Care, Regularly: No Physical Activity Frequency: 5-6 Times per Week Review of Systems A total of 10 systems reviewed and were otherwise negative Physical Exam Vital Signs Vital Signs - 24 hr 01/14/20 23:51 01/15/20 01:34 Temperature 36.9 C Temperature Source Oral Pulse Rate 93 H Pulse Rate [Finger] 84 Respiratory Rate 18 16 Respiratory Effort / Characteristics Non-Labored Non-Labored Spontaneous Respiratory Depth Normal Normal Respiratory Pattern Regular Blood Pressure 145/86 H Blood Pressure [Right Arm] 135/87 Blood Pressure Mean 105 Blood Pressure Mean [Right Arm] 103 Pulse Oximetry 97 96 Oxygen Delivery Method Room Air Room Air Sepsis Recent Fever Within 48 Hours No Sepsis Action Taken by Nursing No Action Required VITALS: Vitals are noted on the nurse's note and reviewed by myself. Vital signs stable. GENERAL: Well-developed, well-nourished, white female who appears in moderate to severe discomfort. She is holding her mid abdomen and laying on her side in the ER bed. She is tearful. HEAD: Normocephalic atraumatic. EARS: External ear normal. External auditory canals clear, tympanic membranes pearly [place] without erythema or effusion bilaterally. EYES: Pupils equal round and reactive to light and accommodation. Conjunctivae without injection, sclerae without icterus. Extraocular movements intact. NOSE: Patent, turbinates without inflammation or discharge. MOUTH: Mucous membranes moist. Tonsils are not enlarged. Pharynx without erythema, blood, or exudate. Uvula midline. Airway patent. NECK: Supple without nuchal rigidity. No lymphadenopathy. No thyromegaly. Cervical spine is nontender. HEART: Regular rate and rhythm without murmurs gallops or rubs. LUNGS: Clear to auscultation bilaterally without wheezes, rales or rhonchi. No retractions or accessory muscle use. ABDOMEN: Positive normal bowel sounds x 4. Soft with periumbilical tenderness. No distinct rebound or guarding. No CVA tenderness MUSCULOSKELETAL: No muscle atrophy, erythema, or edema noted. Full range of motion in all extremities. NEURO: Patient was alert and oriented to person place and time. CN II through XII grossly intact. No focal neurological deficits. Deep tendon reflexes 2+ throughout. SKIN: The skin was without rashes, erythema, edema, or bruising. Capillary refill less than 2 seconds. Course Administered Medications Potassium Chloride/Sodium Chloride (Normal Saline W/20 Meq Kcl) 20 meq in 1,000 mls @ 150 mls/hr IV .Q6H40M [facility] Stop: 02/14/20 03:14 Last Admin: 01/15/20 03:33 Dose: 150 mls/hr Documented by: [id number] Discontinued Medications Sodium Chloride (Nss 1000ml) 1,000 mls @ 999 mls/hr IV .Q1H1M [facility] Stop: 01/15/20 01:15 Last Infusion: 01/15/20 01:24 Dose: 0 mls/hr Documented by: [id number] Admin: 01/15/20 00:18 Dose: 999 mls/hr Documented by: [id number] Ciprofloxacin (Cipro) 400 mg in 200 mls @ 200 mls/hr IV NOW STA Stop: 01/15/20 02:18 Last Infusion: 01/15/20 03:24 Dose: 0 mls/hr Documented by: [id number] Admin: 01/15/20 01:34 Dose: 200 mls/hr Documented by: [id number] Metronidazole (Flagyl) 500 mg in 100 mls @ 100 mls/hr IV NOW STA Stop: 01/15/20 02:18 Last Infusion: 01/15/20 02:33 Dose: 0 mls/hr Documented by: [id number] Admin: 01/15/20 01:34 Dose: 100 mls/hr Documented by: [id number] Morphine Sulfate (Morphine Sulfate) 4 mg IV Q30M PRN PRN Reason: Pain Stop: 01/29/20 00:06 Last Admin: 01/15/20 00:18 Dose: 4 mg Documented by: [id number] Ondansetron HCl (Zofran) 4 mg IV NOW STA Stop: 01/15/20 00:08 Last Admin: 01/15/20 00:18 Dose: 4 mg Documented by: [id number] Medical Decision Making Differential Diagnosis Differential diagnosis: Etiologies such as biliary colic, cholecystitis, hepatitis, pancreatitis, cardiac disease, pancreatitis, gastritis, peptic ulcer disease, appendicitis, cystitis, diverticulitis, mesenteric ischemia, inflammatory bowel disease, ileus, bowel obstruction, testicular/adnexal torsion, aortic pathology, shingles, as well as others were considered Laboratory Data Result diagrams: 01/15/20 00:13 01/15/20 00:13 Lab Results 01/15/20 01/15/20 01/15/20 Range/Units 00:13 00:13 00:16 WBC 14.51 H (4.8-10.8) K/uL RBC 4.99 (4.2-5.4) M/uL Hgb 15.9 (12.0-16.0) g/dL Hct 44.7 (37-47) % MCV 89.6 (80-100) fL MCH 31.9 (25-34) pg MCHC 35.6 (32-36) g/dL RDW Std Deviation 39.9 (36.4-46.3) fL RDW Coeff of Yris 12.3 (11.5-14.5) % Plt Count 289 (130-400) K/uL MPV 9.4 (7.4-10.4) fL Immature Gran % (Auto) 0.1 % Neut % (Auto) 79.8 % Lymph % (Auto) 13.1 % [place] % (Auto) 6.5 % Eos % (Auto) 0.4 % Baso % (Auto) 0.1 % Immature Gran # (Auto) 0.02 (0.00-0.02) K/uL Neut # (Auto) 11.56 H (1.4-6.5) K/uL Lymph # (Auto) 1.90 (1.2-3.4) K/uL [place] # (Auto) 0.95 H (0.11-0.59) K/uL Eos # (Auto) 0.06 (0-0.5) K/uL Baso # (Auto) 0.02 (0-0.2) K/uL Sodium 137 (136-145) mmol/L Potassium 3.4 L (3.5-5.1) mmol/L Chloride 103 (98-107) mmol/L Carbon Dioxide 29 (21-32) mmol/L Anion Gap 5.0 (3-11) BUN 12 (7-18) mg/dl Creatinine 0.90 (0.6-1.2) mg/dl Est Cr Clr Drug Dosing 75.6 ml/min Est GFR ( Amer) 99.4 Est GFR (Non-Af Amer) 85.8 BUN/Creatinine Ratio 13.6 (10-20) Glucose 93 (70-99) mg/dl Calcium 9.4 (8.5-10.1) mg/dl Total Bilirubin 0.9 (0.2-1) mg/dl AST 19 (15-37) U/L ALT 23 (12-78) U/L Alkaline Phosphatase 62 (45-117) U/L Total Protein 8.0 (6.4-8.2) gm/dl Albumin 4.3 (3.4-5.0) gm/dl Globulin 3.7 (2.5-4.0) gm/dl Albumin/Globulin Ratio 1.2 (0.9-2) Lipase 51 L (73-393) U/L Urine Color Urine Appearance (Clear) Urine pH (4.5-7.5) Ur Specific [place] (1.000-1.030) Urine Protein (Negative) Urine Glucose (UA) (Negative) Urine Ketones (Negative) Urine Blood (Negative) Urine Nitrite (Negative) Urine Bilirubin (Negative) Urine Urobilinogen (Negative) Ur Leukocyte Esterase (Negative) Urine WBC (Auto) (0-5) /hpf Urine RBC (Auto) (0-4) /hpf U Hyaline Cast (Auto) (0-5) /lpf U Epithel Cells (Auto) (0-5) /lpf Urine Bacteria (Auto) (Negative) POC Ur Test NEG (NEG) 01/15/20 Range/Units 00:16 WBC (4.8-10.8) K/uL RBC (4.2-5.4) M/uL Hgb (12.0-16.0) g/dL Hct (37-47) % MCV (80-100) fL MCH (25-34) pg MCHC (32-36) g/dL RDW Std Deviation (36.4-46.3) fL RDW Coeff of Yris (11.5-14.5) % Plt Count (130-400) K/uL MPV (7.4-10.4) fL Immature Gran % (Auto) % Neut % (Auto) % Lymph % (Auto) % [place] % (Auto) % Eos % (Auto) % Baso % (Auto) % Immature Gran # (Auto) (0.00-0.02) K/uL Neut # (Auto) (1.4-6.5) K/uL Lymph # (Auto) (1.2-3.4) K/uL [place] # (Auto) (0.11-0.59) K/uL Eos # (Auto) (0-0.5) K/uL Baso # (Auto) (0-0.2) K/uL Sodium (136-145) mmol/L Potassium (3.5-5.1) mmol/L Chloride (98-107) mmol/L Carbon Dioxide (21-32) mmol/L Anion Gap (3-11) BUN (7-18) mg/dl Creatinine (0.6-1.2) mg/dl Est Cr Clr Drug Dosing ml/min Est GFR ( Amer) Est GFR (Non-Af Amer) BUN/Creatinine Ratio (10-20) Glucose (70-99) mg/dl Calcium (8.5-10.1) mg/dl Total Bilirubin (0.2-1) mg/dl AST (15-37) U/L ALT (12-78) U/L Alkaline Phosphatase (45-117) U/L Total Protein (6.4-8.2) gm/dl Albumin (3.4-5.0) gm/dl Globulin (2.5-4.0) gm/dl Albumin/Globulin Ratio (0.9-2) Lipase (73-393) U/L Urine Color Yellow Urine Appearance Turbid A (Clear) Urine pH 8.0 H (4.5-7.5) Ur Specific [place] 1.021 (1.000-1.030) Urine Protein Negative (Negative) Urine Glucose (UA) Negative (Negative) Urine Ketones 1+ H (Negative) Urine Blood Trace H (Negative) Urine Nitrite Negative (Negative) Urine Bilirubin Negative (Negative) Urine Urobilinogen Negative (Negative) Ur Leukocyte Esterase 2+ H (Negative) Urine WBC (Auto) 5-10 H (0-5) /hpf Urine RBC (Auto) 5-10 H (0-4) /hpf U Hyaline Cast (Auto) 0 (0-5) /lpf U Epithel Cells (Auto) >30 H (0-5) /lpf Urine Bacteria (Auto) 1+ H (Negative) POC Ur Test (NEG) Imaging Data Radiologist's Impression: Preliminary Findings Only See Final Report For Complete Findings CT ABDOMEN & PELVIS Without Contrast: Multiple loops of dilated small bowel, mainly jejunum, in the mid abdomen with mild wall thickening and adjacent mesenteric edema. A clear transition point is not definitively seen, however, there are decompressed loops of ileum. Findings could represent a partial small bowel obstruction or ileus from infectious enteritis. No free air or free fluid. No abscess. Normal appendix. MDM Narrative Physical exam and history were performed. Nursing notes, EMR, and Medication List were personally reviewed. Patient appears to have severe periumbilical abdominal pain bringing her to the ER. On presentation she appears quite uncomfortable, and this did raise my concern for etiologies such as pancreatitis or ureteral calculi. IV access was established and labs were obtained. The patient was hydrated with normal saline and given IV Zofran and IV morphine for comfort. She was sent to CT scan to further evaluate her symptoms. The patient's blood work is as above and was reviewed. She does have an elevated white blood cell count of 14.5. She does not have a significant anemia or gross electrolyte imbalance. Lipase and transaminases are not diagnostic. Urine may suggest infection as she does have esterase and bacteria. She is not . CT scan was performed and reviewed by myself and radiology, and appears to show multiple loops of dilated small bowel. This could correlate with a small bowel obstruction, as she has had previous abdominal surgeries. This also could be an infectious enteritis. Considering that she may have a UTI, she was given IV Cipro and IV Flagyl here in the ER. Overall the patient does not appear well for discharge home. The case was discussed with my attending, and then with the on-call hospitalist Dr. Craig. Please see Dr. Craig's dictation for further patient course, plan, and disposition. The chart was completed utilizing [employer] Voice Recognition Software. Grammatical errors, random word insertions, pronoun errors, and incomplete sentences are an occasional consequence of this system due to software limitations, ambient noise, and hardware issues. Any formal questions or concerns about the content, text, or information contained within the body of this dictation should be directly addressed to the provider for clarification. . Impression & Plan Abdominal pain, Partial small bowel obstruction, UTI (urinary tract infection) Discharge Plan Visit Data *Final* Discharge Date/Time: 01/15/20 02:44 Chief Complaint: Abdominal Pain Stated Complaint: ABD PAINS, NAUSEA ED Provider: Naty Roldan ED Midlevel Provider: Brenden Gallardo Discharge Problem: Abdominal pain, Partial small bowel obstruction, UTI (urinary tract infection) Patient Disposition: Admitted As Inpatient Discharge Instructions Interventions: ED Discharge Assessment Last Done: 01/15/20 02:44 Discharge Problem: Abdominal pain Qualifiers: Abdominal location: periumbilical Qualified Code(s): R10.33 - Periumbilical pain UTI (urinary tract infection) Qualifiers: Urinary tract infection type: acute cystitis Hematuria presence: without hematuria Qualified Code(s): N30.00 - Acute cystitis without hematuria
[2020-01-15 06:05] LABS: Basophils # (auto) 0.01 K/uL (0-0.2); Basophils % (auto) 0.1 %; Eosinophils # (auto) 0.02 K/uL (0-0.5); Eosinophils % (auto) 0.2 %; Hematocrit (blood only) 39.8 % (37-47); Hemoglobin 13.7 g/dL (12.0-16.0); Immature Granulocytes # (auto) 0.01 K/uL (0.00-0.02); Immature Granulocytes % (auto) 0.1 %; Lymphocytes # (auto) 2.03 K/uL (1.2-3.4); Lymphocytes % (auto) 24.7 %; Mean Corpuscular Hemoglobin 31.1 pg (25-34); Mean Corpuscular Hgb Conc 34.4 g/dL (32-36); Mean Corpuscular Volume 90.2 fL (80-100); Mean Platelet Volume 9.7 fL (7.4-10.4); Monocytes # (auto) 0.57 K/uL (0.11-0.59); Monocytes % (auto) 6.9 %; Neutrophils # (auto) 5.58 K/uL (1.4-6.5); Platelet Count 253 K/uL (130-400); RDW Coefficient of Variation 12.5 % (11.5-14.5); RDW Standard Deviation 41.2 fL (36.4-46.3); Red Blood Count 4.41 M/uL (4.2-5.4); White Blood Count 8.22 K/uL (4.8-10.8)
[2020-01-15 06:33] LABS: Albumin Level 3.4 gm/dl (3.4-5.0); BUN Creatinine Ratio 12.5 (10-20); Calcium 8.6 mg/dl (8.5-10.1); Creatinine Clr Calc Pharmacy 87.2 ml/min; Est GFR (African American) 118.2; Potassium 3.9 mmol/L (3.5-5.1)
[2020-01-15 06:40] LABS: Albumin Globulin Ratio 1.1 (0.9-2); Bilirubin,Total 1.1 mg/dl (0.2-1); Globulin 3.1 gm/dl (2.5-4.0); Total Protein 6.5 gm/dl (6.4-8.2)
--- NOTE | 2020-01-15 07:02 | CT Scan Report ---
ABDOMEN AND PELVIS CT WITHOUT CONTRAST CT DOSE: 287.99 mGy.cm HISTORY: Acute mid abdominal pain colicky mid abd pain TECHNIQUE: Multiaxial CT images of the abdomen and pelvis were performed without contrast. A dose lo wering technique was utilized adhering to the principles of ALARA. COMPARISON STUDY: None. FINDINGS: Clear lung bases. No pneumatosis or pneumoperitoneum. Imaged inferior cardiac chambers appear unremar kable. Limited evaluation of the solid abdominal organs without the use of IV contrast. Within the li mitations of the exam, the spleen, pancreas, adrenal glands, liver and gallbladder appear unremarkabl e. No biliary ductal dilation. Kidneys and ureters are unremarkable. No renal or ureteral calculi. De compressed urinary bladder. Uterus and adnexa are unremarkable. Trace free pelvic fluid is likely phy siologic. Aorta and IVC are unremarkable. No adenopathy. There are multiple mildly dilated, air and fluid-filled loops of small bowel within the central and l ower abdomen measuring up to 3.1 cm transversely with a few loops of mild circumferential wall thicke sedrick, interloop and mesenteric edema which primarily involves jejunum. Loops of decompressed ileum ar e noted without discrete transition point. There is mild fecal retention. Normal-appearing appendix. Tiny fat filled periumbilical hernia. The imaged breast parenchyma and soft tissues appear unremarkab le. Mild convex right curvature of the thoracolumbar junction. Bones appear intact. IMPRESSION: 1. Multiple air and fluid-filled and mildly dilated loops of small bowel, predominantly involving the jejunum are noted in addition to mild associated bowel wall thickening with interloop and mesenteric edema. No discrete transition point is identified. Findings are suggestive of enteritis/ileus with a low-grade small bowel obstruction also within the differential. No pneumatosis or pneumoperitoneum. 2. Normal appendix. 3. No renal or ureteral calculi or obstructive uropathy. ACT 112: Negative or not required by law. The above report was generated using voice recognition software. It may contain grammatical, syntax o r spelling errors. Electronically signed by: Jayme Zhu M.D. 01/15/2020 7:00 AM
[2020-01-15] MEDS: FAMOTIDINE 20 MG in SYRINGE 3 ML IV SCH ×2 (08:25→21:19)
[2020-01-15] MEDS: metroNIDAZOLE 500 MG/100 ML BAG IV SCH ×2 (10:21→19:10)
--- NOTE | 2020-01-15 11:27 | Hospitalist Progress Note ---
Date of Service January 15, 2020 Assessment & Plan (1) Partial small bowel obstruction: Question of low-grade partial bowel obstruction versus enteritis. Patient seems to be improved from presentation. Will recheck flatplate of the abdomen, if negative will advance diet to clears. Symptoms better but has not yet had a bowel movement, will monitor another 24 hours. Encourage ambulation. (2) Abdominal pain: See above (3) UTI (urinary tract infection): Weakly positive urinalysis, culture still pending. Patient has denied any urinary symptoms. We will continue to monitor off antibiotics. (4) Neutrophilic leukocytosis: See above (5) Hypokalemia: Placed on NSS + KCl 20 mEq at 150 mils per hour. Follow BMP Admission and Anticipated Discharge Date Admission Date: January 15, 2020 Anticipated date of discharge: 01/16/20 Subjective Seen and examined. Patient seems to have improved in otology. She has mild left-sided abdominal pain which is improved from presentation. She has had no nausea or vomiting. She does admit to passing some flatus but has not yet had a bowel movement. She is afebrile and vitals are otherwise stable. Physical Exam Constitutional: cooperative; no acute distress Nonjaundiced and anicteric Neck: trachea midline, no thyromegaly Respiratory: normal respiratory effort Auscultation: lungs clear to auscultation bilaterally; no crackles, no rales, no rhonchi and no wheezes Cardiovascular: Rate/Rhythm: regular rate and regular rhythm Heart Sounds: normal S1 and normal S2 Gastrointestinal (Abdomen): Inspection/Auscultation: abdomen normal to inspection Percussion/Palpation: abdomen soft (Flat, hyperactive bowel sounds); abdomen nontender, no guarding, abdomen not rigid and no hepatosplenomegaly Skin: no rashes, warm and dry Results & Data Results & Data ([facility]) Vital Signs (Past 12 Hours) Vital Signs Temp Pulse Pulse Resp BP BP BP 01/15/20 07:45 36.7 C 47 L 14 98/70 L 01/15/20 03:02 37 C 69 16 111/72 01/15/20 02:44 82 16 125/80 01/15/20 01:34 84 16 135/87 01/14/20 23:51 36.9 C 93 H 18 145/86 H Pulse Ox 01/15/20 07:45 98 01/15/20 03:02 98 01/15/20 02:44 96 01/15/20 01:34 96 01/14/20 23:51 97 PG Care Time/CCT Total # of Minutes Spent Total Time Spent with Patient: Total time spent is greater than 50% in coordination of care (as documented) at patient's floor/unit and/or counseling patient: Coding Level of Care Code 60859 Subseq Hosp Care Lvl 2 Diagnoses Partial small bowel obstruction K56.600 Abdominal pain R10.33 Abdominal location: periumbilical UTI (urinary tract infection) N30.00 Hematuria presence: without hematuria Urinary tract infection type: acute cystitis Neutrophilic leukocytosis D72.9 Hypokalemia E87.6 (1) Abdominal pain Abdominal location: periumbilical Qualified Code(s): R10.33 - Periumbilical pain (2) UTI (urinary tract infection) Hematuria presence: without hematuria Urinary tract infection type: acute cystitis Qualified Code(s): N30.00 - Acute cystitis without hematuria
--- NOTE | 2020-01-15 12:05 | XRay Report ---
KUB HISTORY: Follow up study in a patient with small bowel distention FU SBO vs illeus COMPARISON: CT abdomen and pelvis 01/15/2020 FINDINGS: No small bowel obstruction identified. Air-filled mildly prominent loop of jejunum within l eft upper abdomen measures up to 2.7 cm. Moderate fecal retention. No renal calculi. No ureteral angle culi. No pneumoperitoneum or pneumatosis. No fracture. IMPRESSION: 1. Prominent air-filled loop of jejunum within the abdominal left upper quadrant is noted correlating with the previously described enteritis/ileus pattern. The bowel gas pattern overall appears nonobst ructive. 2. No pneumoperitoneum. 3. Moderate fecal retention. ACT 112: Negative or not required by law. The above report was generated using voice recognition software. It may contain grammatical, syntax o r spelling errors. Electronically signed by: Jayme Zhu M.D. 01/15/2020 12:03 PM
[2020-01-15] MEDS ORDERED: POLYETHYLENE (MIRALAX) 17 GM PACK PO STA (13:26)
[2020-01-15] MEDS: CIPROFLOXACIN / D5W 400 MG/200 ML BAG IV SCH (14:01)
[2020-01-15] MEDS ORDERED: MAGNESIUM CITRATE 296 ML/BTL PO ONE (17:30)
[2020-01-16] MEDS: CIPROFLOXACIN / D5W 400 MG/200 ML BAG IV SCH (02:41)
[2020-01-16] MEDS: metroNIDAZOLE 500 MG/100 ML BAG IV SCH ×2 (02:41→09:04)
[2020-01-16 05:56] LABS: Basophils # (auto) 0.02 K/uL (0-0.2); Basophils % (auto) 0.4 %; Eosinophils # (auto) 0.13 K/uL (0-0.5); Eosinophils % (auto) 2.8 %; Hematocrit (blood only) 39.8 % (37-47); Hemoglobin 13.5 g/dL (12.0-16.0); Immature Granulocytes # (auto) 0.01 K/uL (0.00-0.02); Immature Granulocytes % (auto) 0.2 %; Lymphocytes # (auto) 2.16 K/uL (1.2-3.4); Mean Corpuscular Hemoglobin 31.2 pg (25-34); Mean Corpuscular Hgb Conc 33.9 g/dL (32-36); Mean Corpuscular Volume 91.9 fL (80-100); Mean Platelet Volume 9.4 fL (7.4-10.4); Monocytes # (auto) 0.43 K/uL (0.11-0.59); Monocytes % (auto) 9.3 %; Neutrophils # (auto) 1.85 K/uL (1.4-6.5); Neutrophils % (auto) 40.3 %; Platelet Count 242 K/uL (130-400); RDW Coefficient of Variation 12.4 % (11.5-14.5); Red Blood Count 4.33 M/uL (4.2-5.4)
[2020-01-16 06:15] LABS: Albumin Level 3.2 gm/dl (3.4-5.0); BUN Creatinine Ratio 8.4 (10-20); Calcium 8.5 mg/dl (8.5-10.1); Creatinine Clr Calc Pharmacy 95.8 ml/min; Est GFR (African American) 132.5; Est GFR (Non-African American) 114.3; Magnesium 2.1 mg/dl (1.8-2.4)
[2020-01-16 06:18] LABS: Albumin Globulin Ratio 1.1 (0.9-2); Bilirubin,Total 1.2 mg/dl (0.2-1); Globulin 2.8 gm/dl (2.5-4.0)
[2020-01-16] MEDS: NSS + 20MEQ KCL 20 MEQ/1,000 ML BAG IV SCH (07:47)
[2020-01-16] MEDS: FAMOTIDINE 20 MG in SYRINGE 3 ML IV SCH (09:04)
--- NOTE | 2020-01-16 10:45 | Discharge Summary ---
Date of Service January 16, 2020 Admission HPI Per Admitting Provider The patient is a 29-year-old female with past medical history primarily significant for vaginal bleeding, who presents to the emergency department with acute onset of severe sharp mid abdominal discomfort that dropped her to her knees. She denies any recent travel or sick exposures. She denies any change in dietary habits to both liquids and solids. She reports no bowel movement today, and had a small bowel movement yesterday. She has not had any previous occurrences of the type of symptoms, and denies any significant abdominal surgeries. Admission Exam Per Admitting Provider The patient is awake, alert and oriented 3, well developed and well nourished, normocephalic and atraumatic, lying in bed and in no acute distress. HEENT--PERRL, EOMI, mucous membranes and oropharynx dry. Neck--supple. No JVD. No bruits. Thyroid normal, trachea midline, no adenopathy. Heart--normal S1 and S2. No murmurs, rubs or gallops. Lungs--clear bilaterally, no respiratory distress, no accessory muscle use. Abdomen--normal bowel sounds and soft. Nontender. Nondistended, post administration of morphine. Extremities--no cyanosis or clubbing. No edema. Dermatologic--normal skin turgor, normal color, no abnormal lymph nodes, no rash. Neurologic--cranial nerves II through XII grossly intact. Rheumatologic--normal range of motion. Psychiatric--normal affect. Principal Diagnosis Partial small bowel obstruction versus obstipation Discharge Exam Constitutional cooperative; no acute distress Neck trachea midline, no thyromegaly Respiratory normal respiratory effort Auscultation: lungs clear to auscultation bilaterally; no crackles, no rales, no rhonchi and no wheezes Cardiovascular Rate/Rhythm: regular rate and regular rhythm Heart Sounds: normal S1, normal S2 and + murmur Gastrointestinal (Abdomen) Inspection/Auscultation: abdomen normal to inspection Percussion/Palpation: abdomen soft; abdomen nontender, no guarding, abdomen not rigid and no hepatosplenomegaly Skin no rashes, warm and dry Discharge Data Allergies Allergy/AdvReac Type Severity Reaction Status Date / Time No Known Allergies Allergy Unverified 01/15/20 00:12 Consultations 01/15/20 01:20 ED Decision to Admit Stat 01/15/20 02:54 Consult Case Management - Discharge Planning Routine Ordered Studies 01/15/20 00:07 CT abd pelvis wo con Urgent ABDOMEN AND PELVIS CT WITHOUT CONTRAST CT DOSE: 287.99 mGy.cm HISTORY: Acute mid abdominal pain colicky mid abd pain TECHNIQUE: Multiaxial CT images of the abdomen and pelvis were performed without contrast. A dose lowering technique was utilized adhering to the principles of ALARA. COMPARISON STUDY: None. FINDINGS: Clear lung bases. No pneumatosis or pneumoperitoneum. Imaged inferior cardiac chambers appear unremarkable. Limited evaluation of the solid abdominal organs without the use of IV contrast. Within the limitations of the exam, the spleen, pancreas, adrenal glands, liver and gallbladder appear unremarkable. No biliary ductal dilation. Kidneys and ureters are unremarkable. No renal or ureteral calculi. Decompressed urinary bladder. Uterus and adnexa are unremarkable. Trace free pelvic fluid is likely physiologic. Aorta and IVC are unremarkable. No adenopathy. There are multiple mildly dilated, air and fluid-filled loops of small bowel within the central and lower abdomen measuring up to 3.1 cm transversely with a few loops of mild circumferential wall thickening, interloop and mesenteric edema which primarily involves jejunum. Loops of decompressed ileum are noted without discrete transition point. There is mild fecal retention. Normal- appearing appendix. Tiny fat filled periumbilical hernia. The imaged breast parenchyma and soft tissues appear unremarkable. Mild convex right curvature of the thoracolumbar junction. Bones appear intact. IMPRESSION: 1. Multiple air and fluid-filled and mildly dilated loops of small bowel, predominantly involving the jejunum are noted in addition to mild associated bow el wall thickening with interloop and mesenteric edema. No discrete transition point is identified. Findings are suggestive of enteritis/ileus with a low-grade small bowel obstruction also within the differential. No pneumatosis or pneumoperitoneum. 2. Normal appendix. 3. No renal or ureteral calculi or obstructive uropathy. --- KUB HISTORY: Follow up study in a patient with small bowel distention FU SBO vs [place] COMPARISON: CT abdomen and pelvis 01/15/2020 FINDINGS: No small bowel obstruction identified. Air-filled mildly prominent loop of jejunum within left upper abdomen measures up to 2.7 cm. Moderate fecal retention. No renal calculi. No ureteral calculi. No pneumoperitoneum or pneumatosis. No fracture. IMPRESSION: 1. Prominent air-filled loop of jejunum within the abdominal left upper quadrant is noted correlating with the previously described enteritis/ileus pattern. The bowel gas pattern overall appears nonobstructive. 2. No pneumoperitoneum. 3. Moderate fecal retention. Hospital Course (1) Partial small bowel obstruction: Suspect patient was having obstipation considering appearance of CT and KUB with large amount of stool in the colon. Patient was given laxatives with some small bowel movements and general relief of abdominal pain. Patient has had no nausea or vomiting. Patient did not require any IV narcotics nor did she have an NG tube. Plan will be to advance to regular diet. She continues to have bowel movements, she can be discharged home in stable condition. I did recommend Colace twice a day to prevent further issues with this. She can also use [id number] laxatives as needed. (2) Abdominal pain: See above (3) UTI (urinary tract infection): Weakly positive urinalysis, culture still pending. Patient has denied any urinary symptoms. We will continue to monitor off antibiotics. (4) Neutrophilic leukocytosis: See above (5) Hypokalemia: Placed on NSS + KCl 20 mEq at 150 mils per hour. Follow BMP Total Time Total Time Spent Total Time Spent (In Minutes): Time spent preparing discharge in excess of 30 minutes. Discharge Plan Discharge Items Patient Disposition: Home - Self-Care Reason For Visit: PSBO Discharge Diagnosis: 1. Low-grade partial small bowel obstruction versus obstipation Lifting: Gradually increase as tolerated Bathing: No limitations Sexual Activity: When tolerated Exercise/Sports: As tolerated Weightbearing: Full weightbearing Non-emergency contact: Primary Care Provider Call non-emergency contact if: your symptoms worsen Follow-up/Referrals: Michelle Smith DO [Primary Care Provider] - Diet: Regular Addtl Attending Provider Instructions: Increase fiber intake if possible Stand-Alone Forms: [employer] Smoking Cessation Medications and DC Order Prescriptions: New docusate sodium [Colace] 100 mg capsule 100 mg PO BID Qty: 60 RF: 0 Discharge Orders: Discharge Order (Routine); Ordered 01/16/20 Ordered By: Madi Kong Admission Data Admit Date/Time: 01/15/20 02:30 Attending Provider: Madi Kong Admit Provider: Pasquariello,Rciardo D Primary Care Provider: Michelle Smith Other Providers: Ricardo Craig Coding Level of Care Code D/C Day Management >30 mins Diagnoses Partial small bowel obstruction K56.600 Abdominal pain R10.33 Abdominal location: periumbilical UTI (urinary tract infection) N30.00 Hematuria presence: without hematuria Urinary tract infection type: acute cystitis Neutrophilic leukocytosis D72.9 Hypokalemia E87.6
== END 2020-01-16 13:12 | disposition home or self-care (01) | DRG 389 ==
LOC: ED 23:49 → SUATTDRO 01-15 02:30 → 3E 01-15 02:30